=== PATIENT | male | born 1935 | race Two or more races ===

== ENCOUNTER 2020-03-06 11:57 | Inpatient (IN) | payer OTHER ==
[2020-03-06 12:02] VITALS: BMI 24.3
[2020-03-06] MEDS ORDERED: LIDOCAINE HCL 2% JELLY 10 ML CARTRIDGE UR ONE (12:59)
[2020-03-06] MEDS ORDERED: LIDOCAINE HCL 2% JELLY 10 ML CARTRIDGE ONE (13:06)
[2020-03-06 14:09] LABS: EPI CELLS 4 /uL (0-25.1); HYALINE CASTS 15 /uL (0-3.1); PH,URINE 5.5 (5.0-8.0); URINE APPEARANCE TURBID; URINE BACTERIA >9,000 /uL (0-1359); URINE BILIRUBIN NEGATIVE (NEGATIVE); URINE COLOR DK YELLOW; URINE GLUCOSE (UA) NEGATIVE (NEGATIVE); URINE KETONE NEGATIVE (NEGATIVE); URINE LEUK ESTERASE 3+ (NEGATIVE); URINE NITRITE POSITIVE (NEGATIVE); URINE PROTEIN 2+ (NEGATIVE); URINE WBC 18705 /uL (0-25.8)
[2020-03-06 14:10] LABS: URINE RBC 284.4 /uL (0-23.9)
[2020-03-06 14:18] LABS: YEAST NON SEEN (NEGATIVE)
[2020-03-06] MEDS ORDERED: ACETAMINOPHEN INJECTION 100 ML IVPB ONE (16:26)
[2020-03-06] MEDS: ACETAMINOPHEN 1000 MG/100 ML BAG IVPB ONE (16:39)
[2020-03-06] MEDS ORDERED: CEFTRIAXONE 1 GM in DEXTROSE 5%-WATER - 100 ML IVPB ONE (17:39)
[2020-03-06 17:47] LABS: BASO % 0.2 % (0-2.0); HEMATOCRIT 37.3 % (35.4-49); HEMOGLOBIN 12.3 GM/dL (11.7-16.9); LYMPH % 37.3 % (8-40); MCH 28.6 pg (25.7-33.7); MEAN CELL VOLUME 86.6 fl (80-96); MONO % 9.7 % (3.8-10.2); NEUT % 49.8 % (42.8-82.8); PLATELET COUNT 263 K/MM3 (134-434); RBC 4.31 M/mm3 (4.00-5.60); RDW 14.6 % (11.9-15.9); WHITE BLOOD COUNT 10.3 K/mm3 (4.0-10.0)
[2020-03-06 18:05] LABS: CALCIUM 9.2 mg/dL (8.5-10.1)
[2020-03-06 18:06] LABS: ALBUMIN 3.7 g/dl (3.4-5.0); BLOOD UREA NITROGEN 22.3 mg/dL (7-18)
[2020-03-06] MEDS ORDERED: CEFTRIAXONE 1 GM/50 ML BAG ONE (18:08)
[2020-03-06 18:09] LABS: CREATININE 1.2 mg/dL (0.55-1.3)
[2020-03-06 18:10] LABS: BILIRUBIN,TOTAL 0.6 mg/dL (0.2-1)
[2020-03-06 18:11] LABS: TOT PROT 7.4 g/dl (6.4-8.2)
[2020-03-06] MEDS ORDERED: ACETAMINOPHEN 325 MG TABLET (FP) PO PRN (18:50)
[2020-03-06] MEDS ORDERED: PNEUMOC 13-VAL CONJ-DIP CRM/PF 0.5 ML DISP.SYRIN IM ONE (22:00)
[2020-03-07] MEDS: CEFTRIAXONE 1 GM in DEXTROSE 5%-WATER - 50 ML IVPB SCH (10:44)
[2020-03-07] MEDS ORDERED: ONDANSETRON 4 MG/2 ML VIAL IVPUSH PRN (15:41)
[2020-03-07] MEDS ORDERED: LACTATED RINGERS SOLUTION 1,000 ML IV SCH (15:45)
[2020-03-07] MEDS ORDERED: ACETAMINOPHEN 1000 MG/100 ML BAG IVPB ONE (17:19)
[2020-03-07] MEDS: ACETAMINOPHEN 1000 MG/100 ML BAG IVPB ONE (17:25)
[2020-03-07] MEDS ORDERED: GENTAMICIN 80MG PREMIX BAG IVPB ONE (17:35)
[2020-03-07 18:57] LABS: EPI CELLS 22 /uL (0-25.1); HYALINE CASTS 2 /uL (0-3.1); URINE APPEARANCE CLOUDY; URINE BACTERIA 60 /uL (0-1359); URINE BILIRUBIN NEGATIVE (NEGATIVE); URINE COLOR ORANGE; URINE GLUCOSE (UA) NEGATIVE (NEGATIVE); URINE KETONE NEGATIVE (NEGATIVE); URINE LEUK ESTERASE 1+ (NEGATIVE); URINE NITRITE NEGATIVE (NEGATIVE); URINE PROTEIN 1+ (NEGATIVE); URINE RBC 2995 /uL (0-23.9); URINE UROBILINOGEN 0.2 mg/dL (0.2-1.0); URINE WBC 93 /uL (0-25.8)
[2020-03-08] MEDS: CEFTRIAXONE 1 GM in DEXTROSE 5%-WATER - 50 ML IVPB SCH (09:30)
[2020-03-08] MEDS ORDERED: LACTATED RINGERS SOLUTION 1,000 ML IV SCH (10:19)
[2020-03-08 12:29] LABS: BASO % 0.1 % (0-2.0); EOS % 0.8 % (0-4.5); HEMATOCRIT 33.6 % (35.4-49); HEMOGLOBIN 10.8 GM/dL (11.7-16.9); MCH 27.9 pg (25.7-33.7); MCHC 32.1 g/dl (32.0-35.9); MEAN CELL VOLUME 86.7 fl (80-96); MEAN PLT VOLUME 8.4 fl (7.5-11.1); MONO % 3.7 % (3.8-10.2); NEUT % 87.4 % (42.8-82.8); PLATELET COUNT 221 K/MM3 (134-434); RBC 3.88 M/mm3 (4.00-5.60); RDW 14.8 % (11.9-15.9); WHITE BLOOD COUNT 20.6 K/mm3 (4.0-10.0)
[2020-03-08 12:46] LABS: BLOOD UREA NITROGEN 19.5 mg/dL (7-18); CALCIUM 8.4 mg/dL (8.5-10.1)
[2020-03-08 12:47] LABS: ALBUMIN 2.5 g/dl (3.4-5.0)
[2020-03-08 12:50] LABS: CREATININE 0.8 mg/dL (0.55-1.3)
[2020-03-08 12:51] LABS: BILIRUBIN,TOTAL 0.9 mg/dL (0.2-1); TOT PROT 5.8 g/dl (6.4-8.2)
[2020-03-08 12:54] LABS: N-TERMINAL BNP 926.4 pg/ml (5-450)
[2020-03-08 14:32] LABS: ANISOCYTOSIS 2+; MACROCYTOSIS 0; PLATELET ESTIMATE NORMAL; TOXIC GRANULATION 1+
[2020-03-09] MEDS ORDERED: DEXTROSE 5%-WATER - 50 ML IVPB ONE (09:29)
[2020-03-09] MEDS ORDERED: cefTRIAXone SODIUM 1 GM VIAL ONE (09:29)
[2020-03-09] MEDS: CEFTRIAXONE 1 GM in DEXTROSE 5%-WATER - 50 ML IVPB SCH (09:38)
[2020-03-09 15:40] LABS: ALLENS TEST POSITIVE; ARTERIAL BLD GAS O2 SATURATION 93.9 mmHg (95-98); ARTERIAL BLOOD GAS BASE EXCESS 2.9 mmol/L (-2-2); ARTERIAL BLOOD GAS PO2 65.7 mmHg (80-100); ARTERIAL BLOOD GAS pH 7.455 (7.350-7.450)
[2020-03-09 16:27] LABS: BASO % 0.2 % (0-2.0); EOS % 1.9 % (0-4.5); HEMATOCRIT 34.2 % (35.4-49); HEMOGLOBIN 11.3 GM/dL (11.7-16.9); LYMPH % 11.3 % (8-40); MCH 28.2 pg (25.7-33.7); MCHC 33.2 g/dl (32.0-35.9); MEAN PLT VOLUME 7.9 fl (7.5-11.1); MONO % 6.6 % (3.8-10.2); PLATELET COUNT 233 K/MM3 (134-434); RBC 4.02 M/mm3 (4.00-5.60); RDW 14.2 % (11.9-15.9); WHITE BLOOD COUNT 16.4 K/mm3 (4.0-10.0)
[2020-03-09 16:53] LABS: ALBUMIN 2.4 g/dl (3.4-5.0); BLOOD UREA NITROGEN 15.4 mg/dL (7-18); CALCIUM 8.5 mg/dL (8.5-10.1)
[2020-03-09 16:57] LABS: CREATININE 0.8 mg/dL (0.55-1.3)
[2020-03-09 16:58] LABS: BILIRUBIN,TOTAL 0.8 mg/dL (0.2-1); TOT PROT 5.9 g/dl (6.4-8.2)
[2020-03-09] MEDS ORDERED: SODIUM CHLORIDE 500 ML IV STA (22:20)
[2020-03-09] MEDS: SODIUM CHLORIDE 0.9% 500 ML INFUS.BAG IV ONE ×2 (23:11→23:17)
[2020-03-09] MEDS: HEPARIN NA (PORCINE) 5,000 UNITS/ML 1ML VIAL SQ SCH (23:12)
[2020-03-10] MEDS: HEPARIN NA (PORCINE) 5,000 UNITS/ML 1ML VIAL SQ SCH ×2 (06:29→14:15)
[2020-03-10] MEDS ORDERED: DEXTROSE 5%-WATER - 50 ML IVPB ONE (10:11)
[2020-03-10] MEDS ORDERED: cefTRIAXone SODIUM 1 GM VIAL ONE (10:11)
[2020-03-10] MEDS: CEFTRIAXONE 1 GM in DEXTROSE 5%-WATER - 50 ML IVPB SCH (10:14)
[2020-03-10 14:02] VITALS: BP 127/73; PULSE 81; TEMP 99.3
== END 2020-03-10 14:49 | disposition home health service (06) | DRG 713 ==
LOC: SUPCPDRO 11:57 → JER 11:57 → JERBED 16:15 → J6WEST-2 18:56 → J8W 03-08 18:40
PROVIDERS: ADMIT Internal Medicine
PROC: 0V508ZZ Destruction of Prostate, Via Natural or Artificial Opening Endoscopic (ICD-10-PCS; principal; 2020-03-07)
PROC: 0T5C8ZZ Destruction of Bladder Neck, Via Natural or Artificial Opening Endoscopic (ICD-10-PCS; 2020-03-07)
DX: N40.1 Benign prostatic hyperplasia with lower urinary tract symptoms (principal); N39.0 Urinary tract infection, site not specified; J98.11 Atelectasis; R33.8 Other retention of urine; I10 Essential (primary) hypertension; E78.5 Hyperlipidemia, unspecified; R09.02 Hypoxemia; K59.09 Other constipation; D72.829 Elevated white blood cell count, unspecified
CPT/HCPCS: 36415; 36600; 71045-TC-FY; 71275-TC; 80053; 81003; 82803; 82962; 83880; 85025; 85379; 87040; 87086; 87186; 88108; 88305-TC; 90670; 93005; 93010; 93306-TC; 93970-TC; 94010; 94760; 97116-GP; 97161-GP; 99285-25; C9803; J0131; J1644; Q9967; U0003

== ENCOUNTER 2021-01-19 00:20 | Inpatient (IN) | payer OTHER ==
[2021-01-19 02:18] LABS: BASO % 0.3 % (0-2.0); HEMOGLOBIN 13.1 GM/dL (11.7-16.9); MCH 28.9 pg (25.7-33.7); MCHC 33.5 g/dl (32.0-35.9); MEAN CELL VOLUME 86.2 fl (80-96); MEAN PLT VOLUME 8.1 fl (7.5-11.1); MONO % 8.6 % (3.8-10.2); NEUT % 68.1 % (42.8-82.8); PLATELET COUNT 195 10^3/uL (134-434); RBC 4.52 M/mm3 (4.00-5.60); RDW 14.9 % (11.9-15.9); WHITE BLOOD COUNT 12.9 K/mm3 (4.0-10.0)
[2021-01-19 02:37] LABS: ALBUMIN 3.2 g/dl (3.4-5.0); BLOOD UREA NITROGEN 19.2 mg/dL (7-18); CALCIUM 8.6 mg/dL (8.5-10.1)
[2021-01-19 02:42] LABS: CREATININE 1.3 mg/dL (0.55-1.3)
[2021-01-19 02:43] LABS: BILIRUBIN,TOTAL 0.6 mg/dL (0.2-1); TOT PROT 6.8 g/dl (6.4-8.2)
[2021-01-19] MEDS ORDERED: SODIUM CHLORIDE 0.9% 500 ML INFUS.BAG IV ONE (03:25)
[2021-01-19 03:52] LABS: BASO % 0.2 % (0-2.0); EOS % 1.2 % (0-4.5); HEMOGLOBIN 12.6 GM/dL (11.7-16.9); LYMPH % 21.9 % (8-40); MCH 28.3 pg (25.7-33.7); MCHC 32.3 g/dl (32.0-35.9); MEAN CELL VOLUME 87.5 fl (80-96); MEAN PLT VOLUME 7.7 fl (7.5-11.1); NEUT % 70.7 % (42.8-82.8); PLATELET COUNT 220 10^3/uL (134-434); RBC 4.46 M/mm3 (4.00-5.60); RDW 15.1 % (11.9-15.9); WHITE BLOOD COUNT 20.1 K/mm3 (4.0-10.0)
[2021-01-19] MEDS ORDERED: SUCRALFATE 1 GM TABLET (FP) PO ONE (04:02)
[2021-01-19] MEDS ORDERED: SUCRALFATE 1 GM TABLET (FP) ONE (04:24)
[2021-01-19 06:13] LABS: BASO % 0.4 % (0-2.0); EOS % 0.3 % (0-4.5); HEMATOCRIT 38.1 % (35.4-49); HEMOGLOBIN 12.7 GM/dL (11.7-16.9); LYMPH % 9.6 % (8-40); MCH 28.9 pg (25.7-33.7); MCHC 33.3 g/dl (32.0-35.9); MEAN CELL VOLUME 86.6 fl (80-96); MEAN PLT VOLUME 8.4 fl (7.5-11.1); MONO % 4.9 % (3.8-10.2); NEUT % 84.8 % (42.8-82.8); PLATELET COUNT 182 10^3/uL (134-434); RDW 14.6 % (11.9-15.9)
[2021-01-19 06:20] LABS: INR 1.03 (0.83-1.09)
[2021-01-19 06:23] LABS: ACTIVATED PTT 27.4 SECONDS (25.2-36.5)
[2021-01-19 06:34] LABS: ANISOCYTOSIS 3+; MACROCYTOSIS 0; OVALOCYTE 1+; PLATELET ESTIMATE NORMAL
[2021-01-19 06:45] LABS: ALBUMIN 3.3 g/dl (3.4-5.0); BLOOD UREA NITROGEN 21.6 mg/dL (7-18); CALCIUM 8.4 mg/dL (8.5-10.1); CO2 25 mmol/L (21-32); GLUCOSE,RANDOM 108 mg/dL (74-106)
[2021-01-19 06:46] LABS: CREATININE 1.3 mg/dL (0.55-1.3); SGOT/AST 18 U/L (15-37); SGPT/ALT 15 U/L (13-61)
[2021-01-19 06:47] LABS: PHOSPHOROUS 3.8 mg/dL (2.5-4.9)
[2021-01-19 06:49] LABS: BILIRUBIN,TOTAL 0.6 mg/dL (0.2-1); TOT PROT 6.8 g/dl (6.4-8.2)
[2021-01-19 06:50] LABS: ALK PHOS 89 U/L (45-117)
[2021-01-19 07:40] LABS: ANION GAP 7 MMOL/L (8-16); CHLORIDE 108 mmol/L (98-107); SODIUM 140 mmol/L (136-145)
[2021-01-19] MEDS ORDERED: PANTOPRAZOLE SODIUM 40 MG/100 ML BAG IVPB ONE (07:57)
[2021-01-19] MEDS ORDERED: TAMSULOSIN HCL 0.4 MG CAP ONE (07:57)
[2021-01-19] MEDS: TAMSULOSIN HCL 0.4 MG CAP PO SCH (08:12)
[2021-01-19 08:32] LABS: RETICULOCYTES 0.86 % (0.5-1.5)
[2021-01-19 08:52] LABS: EPI CELLS 28 /uL (0-25.1); HYALINE CASTS 5 /uL (0-3.1); URINE APPEARANCE CLEAR; URINE BACTERIA 13 /uL (0-1359); URINE BILIRUBIN NEGATIVE (NEGATIVE); URINE COLOR YELLOW; URINE GLUCOSE (UA) NEGATIVE (NEGATIVE); URINE KETONE TRACE (NEGATIVE); URINE LEUK ESTERASE TRACE (NEGATIVE); URINE NITRITE NEGATIVE (NEGATIVE); URINE PROTEIN 1+ (NEGATIVE); URINE RBC 27 /uL (0-23.9); URINE UROBILINOGEN 0.2 mg/dL (0.2-1.0); URINE WBC 50 /uL (0-25.8)
[2021-01-19] MEDS ORDERED: PANTOPRAZOLE SODIUM 40 MG VIAL IVPUSH SCH (10:00)
[2021-01-19 11:09] VITALS: BMI 27.9
[2021-01-19] MEDS ORDERED: cefTRIAXone SODIUM 1 GM VIAL ONE (11:29)
[2021-01-19] MEDS ORDERED: DEXTROSE 5%-WATER - 50 ML IVPB ONE (11:29)
[2021-01-19] MEDS ORDERED: FLU VACC QS2021-22(6MOS UP)/PF 60 MCG/0.5 ML SYRINGE IM ONE (12:15)
[2021-01-19] MEDS: CEFTRIAXONE 1 GM in DEXTROSE 5%-WATER - 50 ML IVPB SCH (12:45)
[2021-01-19 13:31] LABS: HEMOGLOBIN 11.5 GM/dL (11.7-16.9); MCH 29.4 pg (25.7-33.7); MCHC 33.9 g/dl (32.0-35.9); MEAN CELL VOLUME 86.8 fl (80-96); MEAN PLT VOLUME 7.9 fl (7.5-11.1); PLATELET COUNT 177 10^3/uL (134-434); RBC 3.92 M/mm3 (4.00-5.60); RDW 14.7 % (11.9-15.9); WHITE BLOOD COUNT 9.9 K/mm3 (4.0-10.0)
[2021-01-19 20:09] LABS: HEMATOCRIT 33.6 % (35.4-49); HEMOGLOBIN 11.3 GM/dL (11.7-16.9); MCHC 33.5 g/dl (32.0-35.9); MEAN CELL VOLUME 86.4 fl (80-96); MEAN PLT VOLUME 8.4 fl (7.5-11.1); PLATELET COUNT 179 10^3/uL (134-434); RBC 3.89 M/mm3 (4.00-5.60); RDW 14.7 % (11.9-15.9); WHITE BLOOD COUNT 9.2 K/mm3 (4.0-10.0)
[2021-01-20 06:32] LABS: HEMATOCRIT 31.9 % (35.4-49); HEMOGLOBIN 10.9 GM/dL (11.7-16.9); MCH 29.2 pg (25.7-33.7); MEAN CELL VOLUME 85.9 fl (80-96); MEAN PLT VOLUME 8.4 fl (7.5-11.1); PLATELET COUNT 179 10^3/uL (134-434); RBC 3.72 M/mm3 (4.00-5.60); RDW 14.6 % (11.9-15.9); WHITE BLOOD COUNT 7.8 K/mm3 (4.0-10.0)
[2021-01-20 08:34] VITALS: BP 133/68; PULSE 69
[2021-01-20 08:38] LABS: BASO % 0.6 % (0-2.0); EOS % 3.2 % (0-4.5); HEMATOCRIT 32.6 % (35.4-49); HEMOGLOBIN 11.2 GM/dL (11.7-16.9); LYMPH % 33.1 % (8-40); MCH 29.3 pg (25.7-33.7); MCHC 34.3 g/dl (32.0-35.9); MEAN CELL VOLUME 85.5 fl (80-96); NEUT % 55.1 % (42.8-82.8); RBC 3.81 M/mm3 (4.00-5.60); RDW 14.8 % (11.9-15.9); WHITE BLOOD COUNT 8.5 K/mm3 (4.0-10.0)
[2021-01-20 08:39] LABS: MEAN PLT VOLUME 8.9 fl (7.5-11.1); PLATELET COUNT 149 10^3/uL (134-434)
[2021-01-20 09:04] LABS: ALBUMIN 2.9 g/dl (3.4-5.0); BLOOD UREA NITROGEN 12.6 mg/dL (7-18); CALCIUM 7.7 mg/dL (8.5-10.1)
[2021-01-20 09:08] LABS: CREATININE 0.8 mg/dL (0.55-1.3)
[2021-01-20 09:09] LABS: BILIRUBIN,TOTAL 0.8 mg/dL (0.2-1); TOT PROT 5.8 g/dl (6.4-8.2)
[2021-01-20] MEDS ORDERED: cefTRIAXone SODIUM 1 GM VIAL ONE (09:18)
[2021-01-20] MEDS ORDERED: DEXTROSE 5%-WATER - 50 ML IVPB ONE (09:19)
[2021-01-20] MEDS: CEFTRIAXONE 1 GM in DEXTROSE 5%-WATER - 50 ML IVPB SCH (09:25)
[2021-01-20] MEDS: TAMSULOSIN HCL 0.4 MG CAP PO SCH (09:25)
[2021-01-20 09:36] VITALS: TEMP 97.6
[2021-01-20 09:38] LABS: PLATELET ESTIMATE NORMAL
== END 2021-01-20 17:44 | disposition home or self-care (01) | DRG 379 ==
LOC: JER 00:20 → JERBED 04:39 → J8W 09:49
PROVIDERS: ADMIT Internal Medicine
DX: K57.33 Diverticulitis of large intestine without perforation or abscess with bleeding (principal); K62.5 Hemorrhage of anus and rectum; K64.9 Unspecified hemorrhoids; D72.829 Elevated white blood cell count, unspecified; M54.9 Dorsalgia, unspecified; N40.1 Benign prostatic hyperplasia with lower urinary tract symptoms; R33.8 Other retention of urine; E78.5 Hyperlipidemia, unspecified; I45.10 Unspecified right bundle-branch block; N28.1 Cyst of kidney, acquired; I10 Essential (primary) hypertension; N20.0 Calculus of kidney; K59.00 Constipation, unspecified; Z85.46 Personal history of malignant neoplasm of prostate
CPT/HCPCS: 36415; 71045-TC-FY; 74176-TC; 80053; 81003; 82272; 83735; 84100; 85025; 85027; 85045; 85610; 85730; 86140; 86850; 86900; 86901; 87040; 87077; 87086; 87186; 90686; 93005; 93010; 99285-25; C9803; U0003; U0005

== ENCOUNTER 2021-04-14 01:42 | Emergency (ER) | payer OTHER ==
[2021-04-14 01:55] VITALS: BP 106/63; PULSE 83; TEMP 97.6; BMI 25.8
[2021-04-14] MEDS ORDERED: ACETAMINOPHEN 325 MG TABLET (FP) PO ONE (04:29)
[2021-04-14] MEDS ORDERED: ACETAMINOPHEN 325 MG TABLET (FP) ONE (04:49)
== END 2021-04-14 06:11 | disposition home or self-care (01) ==
LOC: JER 01:42
DX: T83.098A Other mechanical complication of other urinary catheter, initial encounter (principal)
CPT/HCPCS: 99283-25

== ENCOUNTER 2021-05-21 20:10 | Emergency (ER) | payer OTHER ==
[2021-05-21 20:19] VITALS: BP 124/70; PULSE 82; TEMP 97.9; BMI 26.6
== END 2021-05-21 21:58 | disposition home or self-care (01) ==
LOC: JER 20:10
DX: T83.9XXA Unspecified complication of genitourinary prosthetic device, implant and graft, initial encounter (principal)
CPT/HCPCS: 99283-25

== ENCOUNTER 2021-05-26 22:22 | Emergency (ER) | payer OTHER ==
[2021-05-26 22:25] VITALS: BP 159/80; PULSE 85; TEMP 98; BMI 26.6
[2021-05-27 00:30] LABS: EPI CELLS 1 /uL (0-25.1); HYALINE CASTS 1 /uL (0-3.1); PH,URINE 7.5 (5.0-8.0); URINE APPEARANCE CLEAR; URINE BILIRUBIN NEGATIVE (NEGATIVE); URINE COLOR YELLOW; URINE GLUCOSE (UA) NEGATIVE (NEGATIVE); URINE KETONE NEGATIVE (NEGATIVE); URINE LEUK ESTERASE 2+ (NEGATIVE); URINE NITRITE POSITIVE (NEGATIVE); URINE PROTEIN 1+ (NEGATIVE); URINE RBC 12 /uL (0-23.9); URINE UROBILINOGEN 0.2 mg/dL (0.2-1.0); URINE WBC 138 /uL (0-25.8)
[2021-05-27] MEDS ORDERED: SULFAMETHOXAZOLE/TRIMETHOPRIM 800MG/160MG D.S. TABLET PO ONE (00:33)
[2021-05-27] MEDS ORDERED: SULFAMETHOXAZOLE/TRIMETHOPRIM 800MG/160MG D.S. TABLET ONE (00:52)
== END 2021-05-27 01:17 | disposition home or self-care (01) ==
LOC: JER 22:22
DX: R33.9 Retention of urine, unspecified (principal); N39.0 Urinary tract infection, site not specified; T83.9XXA Unspecified complication of genitourinary prosthetic device, implant and graft, initial encounter
CPT/HCPCS: 81003; 87086; 87186; 99283-25

== ENCOUNTER 2021-05-30 13:10 | Emergency (ER) | payer OTHER ==
[2021-05-30 13:23] VITALS: TEMP 97.8; BMI 25.0
[2021-05-30] MEDS ORDERED: PIPERACILLIN/TAZOB 4.5 GM 4.5 GM in DEXTROSE 5%-WATER 100 ML IVPB ONE (15:35)
[2021-05-30] MEDS ORDERED: PIPERACILLIN/TAZOB 4.5 GM 4.5 GM/100 ML BAG IVPB ONE (15:52)
[2021-05-30 16:26] LABS: BASO % 0.2 % (0-2.0); EOS % 2.6 % (0-4.5); HEMATOCRIT 37.9 % (35.4-49); HEMOGLOBIN 12.4 GM/dL (11.7-16.9); LYMPH % 35.8 % (8-40); MCH 27.2 pg (25.7-33.7); MCHC 32.7 g/dl (32.0-35.9); MEAN CELL VOLUME 83.3 fl (80-96); MEAN PLT VOLUME 7.9 fl (7.5-11.1); MONO % 9.6 % (3.8-10.2); NEUT % 51.8 % (42.8-82.8); PLATELET COUNT 241 10^3/uL (134-434); RBC 4.55 M/mm3 (4.00-5.60); RDW 15.1 % (11.9-15.9); WHITE BLOOD COUNT 9.5 K/mm3 (4.0-10.0)
[2021-05-30 16:29] LABS: EPI CELLS 0 /uL (0-25.1); HYALINE CASTS 3 /uL (0-3.1); PH,URINE 7.5 (5.0-8.0); URINE APPEARANCE CLEAR; URINE BILIRUBIN NEGATIVE (NEGATIVE); URINE COLOR YELLOW; URINE GLUCOSE (UA) NEGATIVE (NEGATIVE); URINE KETONE NEGATIVE (NEGATIVE); URINE LEUK ESTERASE 2+ (NEGATIVE); URINE NITRITE POSITIVE (NEGATIVE); URINE PROTEIN 1+ (NEGATIVE); URINE RBC 114 /uL (0-23.9); URINE UROBILINOGEN 0.2 mg/dL (0.2-1.0); URINE WBC 197 /uL (0-25.8)
[2021-05-30 16:43] LABS: CALCIUM 9.1 mg/dL (8.5-10.1)
[2021-05-30 16:44] LABS: ALBUMIN 3.7 g/dl (3.4-5.0); BLOOD UREA NITROGEN 22.6 mg/dL (7-18)
[2021-05-30 16:48] LABS: BILIRUBIN,TOTAL 0.7 mg/dL (0.2-1); TOT PROT 7.5 g/dl (6.4-8.2)
[2021-05-30 18:15] VITALS: BP 128/72; PULSE 74
== END 2021-05-30 18:15 | disposition home or self-care (01) ==
LOC: JER 13:10
DX: N39.0 Urinary tract infection, site not specified (principal); B96.4 Proteus (mirabilis) (morganii) as the cause of diseases classified elsewhere; T83.511A Infection and inflammatory reaction due to indwelling urethral catheter, initial encounter
CPT/HCPCS: 36415; 80053; 81003; 85025; 99284-25; C9803; U0003; U0005

== ENCOUNTER 2021-08-01 19:03 | Emergency (ER) | payer OTHER ==
[2021-08-01 19:31] VITALS: BP 125/73; PULSE 79; TEMP 98.2; BMI 26.6
[2021-08-01 20:53] LABS: EPI CELLS 1 /uL (0-25.1); HYALINE CASTS 1 /uL (0-3.1); PH,URINE 5.5 (5.0-8.0); URINE APPEARANCE CLOUDY; URINE BACTERIA 925 /uL (0-1359); URINE BILIRUBIN NEGATIVE (NEGATIVE); URINE COLOR YELLOW; URINE GLUCOSE (UA) NEGATIVE (NEGATIVE); URINE KETONE NEGATIVE (NEGATIVE); URINE LEUK ESTERASE 2+ (NEGATIVE); URINE NITRITE NEGATIVE (NEGATIVE); URINE PROTEIN 2+ (NEGATIVE); URINE RBC 13000 /uL (0-23.9); URINE WBC 2783 /uL (0-25.8)
== END 2021-08-01 23:00 | disposition home or self-care (01) ==
LOC: JER 19:03
DX: N30.01 Acute cystitis with hematuria (principal)
CPT/HCPCS: 36415; 81003; 87070; 87075; 87086; 87186; 87205; 87491; 87591; 99283-25

== ENCOUNTER 2021-08-03 18:43 | Emergency (ER) | payer OTHER ==
[2021-08-03 18:50] VITALS: BP 137/69; PULSE 96; TEMP 97.8; BMI 26.6
== END 2021-08-03 21:15 | disposition home or self-care (01) ==
LOC: JER 18:43
DX: N30.00 Acute cystitis without hematuria (principal); T83.9XXA Unspecified complication of genitourinary prosthetic device, implant and graft, initial encounter
CPT/HCPCS: 99283-25

== ENCOUNTER 2021-08-09 09:10 | Inpatient (IN) | payer OTHER ==
[2021-08-09 10:11] VITALS: BMI 25.8
[2021-08-09 12:43] LABS: BASO % 0.1 % (0-2.0); EOS % 0.1 % (0-4.5); HEMATOCRIT 25.1 % (35.4-49); HEMOGLOBIN 8.3 GM/dL (11.7-16.9); LYMPH % 12.3 % (8-40); MCH 27.9 pg (25.7-33.7); MEAN CELL VOLUME 84.7 fl (80-96); MONO % 4.4 % (3.8-10.2); NEUT % 83.1 % (42.8-82.8); PLATELET COUNT 201 10^3/uL (134-434); RBC 2.97 M/mm3 (4.00-5.60); RDW 13.8 % (11.9-15.9); WHITE BLOOD COUNT 12.2 K/mm3 (4.0-10.0)
[2021-08-09 12:51] LABS: INR 1.15 (0.83-1.09); PROTHROMBIN TIME (PATIENT) 13.3 SEC (9.7-13.0)
[2021-08-09 12:54] LABS: ACTIVATED PTT 29.1 SECONDS (25.2-36.5)
[2021-08-09 12:58] LABS: EPI CELLS 1 /uL (0-25.1); HYALINE CASTS 2 /uL (0-3.1); URINE APPEARANCE CLEAR; URINE BACTERIA 1506 /uL (0-1359); URINE BILIRUBIN NEGATIVE (NEGATIVE); URINE COLOR YELLOW; URINE GLUCOSE (UA) NEGATIVE (NEGATIVE); URINE KETONE NEGATIVE (NEGATIVE); URINE LEUK ESTERASE 2+ (NEGATIVE); URINE NITRITE POSITIVE (NEGATIVE); URINE PROTEIN NEGATIVE (NEGATIVE); URINE RBC 5 /uL (0-23.9); URINE UROBILINOGEN 0.2 mg/dL (0.2-1.0); URINE WBC 203 /uL (0-25.8)
[2021-08-09 13:06] LABS: ALBUMIN 3.3 g/dl (3.4-5.0); BLOOD UREA NITROGEN 44.3 mg/dL (7-18); CALCIUM 8.9 mg/dL (8.5-10.1)
[2021-08-09 13:09] LABS: CREATININE 0.8 mg/dL (0.55-1.3)
[2021-08-09 13:11] LABS: BILIRUBIN,TOTAL 0.4 mg/dL (0.2-1); TOT PROT 6.6 g/dl (6.4-8.2)
[2021-08-09] MEDS ORDERED: PIPERACILLIN/TAZOB 3.375 GM 3.375 GM in DEXTROSE 5%-WATER - 50 ML IVPB ONE (13:59)
[2021-08-09] MEDS ORDERED: PIPERACILLIN/TAZOB 3.375 GM 3.375 GM/50 ML BAG IVPB ONE (14:05)
[2021-08-09] MEDS ORDERED: ACETAMINOPHEN 325 MG TABLET (FP) PO PRN (15:36)
[2021-08-09] MEDS ORDERED: POLYETHYLENE GLYCOL (HEALTHYLAX) 3350 17 GM PACKET PO PRN (15:36)
[2021-08-09] MEDS ORDERED: PIPERACILLIN/TAZOBACTAM 3.375 GM VIAL IVPB ONE (21:00)
[2021-08-09] MEDS ORDERED: DEXTROSE 5%-WATER - 50 ML IVPB ONE (21:01)
[2021-08-09] MEDS: ATORVASTATIN CA 20 MG TABLET (FP) PO SCH (21:01)
[2021-08-09] MEDS: PIPERACILLIN/TAZOB 3.375 GM 3.375 GM in DEXTROSE 5%-WATER - 50 ML IVPB SCH (22:03)
[2021-08-10] MEDS ORDERED: PIPERACILLIN/TAZOBACTAM 3.375 GM VIAL IVPB ONE ×3 (05:40→21:49)
[2021-08-10] MEDS ORDERED: DEXTROSE 5%-WATER - 50 ML IVPB ONE ×3 (05:40→21:49)
[2021-08-10] MEDS: PIPERACILLIN/TAZOB 3.375 GM 3.375 GM in DEXTROSE 5%-WATER - 50 ML IVPB SCH ×3 (06:08→22:00)
[2021-08-10 07:23] LABS: BASO % 0.2 % (0-2.0); EOS % 0.1 % (0-4.5); HEMOGLOBIN 7.3 GM/dL (11.7-16.9); LYMPH % 18.7 % (8-40); MCH 27.8 pg (25.7-33.7); MCHC 33.1 g/dl (32.0-35.9); MEAN CELL VOLUME 84.1 fl (80-96); MEAN PLT VOLUME 7.8 fl (7.5-11.1); MONO % 5.2 % (3.8-10.2); NEUT % 75.8 % (42.8-82.8); PLATELET COUNT 218 10^3/uL (134-434); RBC 2.62 M/mm3 (4.00-5.60); RDW 14.4 % (11.9-15.9); WHITE BLOOD COUNT 11.9 K/mm3 (4.0-10.0)
[2021-08-10 07:50] LABS: ALBUMIN 3.2 g/dl (3.4-5.0); CALCIUM 8.6 mg/dL (8.5-10.1); MAGNESIUM 2.1 mg/dL (1.8-2.4)
[2021-08-10 07:51] LABS: BLOOD UREA NITROGEN 32.9 mg/dL (7-18)
[2021-08-10 07:53] LABS: CREATININE 0.9 mg/dL (0.55-1.3)
[2021-08-10 07:54] LABS: PHOSPHOROUS 3.6 mg/dL (2.5-4.9)
[2021-08-10 07:55] LABS: BILIRUBIN,TOTAL 0.6 mg/dL (0.2-1); TOT PROT 6.2 g/dl (6.4-8.2)
[2021-08-10] MEDS: DONEPEZIL HCL 5 MG TABLET (FP) PO SCH (09:36)
[2021-08-10] MEDS: BETHANECHOL CHLORIDE 25 MG TABLET PO SCH ×2 (09:36→17:37)
[2021-08-10] MEDS: TAMSULOSIN HCL 0.4 MG CAP PO SCH (09:37)
[2021-08-10] MEDS ORDERED: ENOXAPARIN NA (PORCINE) 40 MG/0.4 ML DISP.SYRIN SQ SCH (10:00)
[2021-08-10] MEDS ORDERED: CLOPIDOGREL BISULFATE 75 MG TABLET (FP) PO SCH (10:00)
[2021-08-10] MEDS: LACTATED RINGERS SOLUTION 1,000 ML/1,000 ML INFUS.BAG IV SCH (11:17)
[2021-08-10] MEDS ORDERED: PANTOPRAZOLE SODIUM 40 MG VIAL IVPUSH SCH (11:30)
[2021-08-10] MEDS: ATORVASTATIN CA 20 MG TABLET (FP) PO SCH (22:00)
[2021-08-11] MEDS ORDERED: PIPERACILLIN/TAZOBACTAM 3.375 GM VIAL IVPB ONE ×2 (05:55→13:59)
[2021-08-11] MEDS ORDERED: DEXTROSE 5%-WATER - 50 ML IVPB ONE ×2 (05:55→14:00)
[2021-08-11] MEDS: PIPERACILLIN/TAZOB 3.375 GM 3.375 GM in DEXTROSE 5%-WATER - 50 ML IVPB SCH ×3 (05:58→14:15)
[2021-08-11 09:17] LABS: BASO % 0.2 % (0-2.0); EOS % 0.5 % (0-4.5); HEMATOCRIT 22.9 % (35.4-49); INR 1.08 (0.83-1.09); LYMPH % 24.2 % (8-40); MCHC 35.1 g/dl (32.0-35.9); MEAN CELL VOLUME 82.6 fl (80-96); MEAN PLT VOLUME 7.7 fl (7.5-11.1); MONO % 9.2 % (3.8-10.2); NEUT % 65.9 % (42.8-82.8); PLATELET COUNT 178 10^3/uL (134-434); PROTHROMBIN TIME (PATIENT) 12.4 SEC (9.7-13.0); RBC 2.77 M/mm3 (4.00-5.60); RDW 14.1 % (11.9-15.9); WHITE BLOOD COUNT 10.9 K/mm3 (4.0-10.0)
[2021-08-11] MEDS: TAMSULOSIN HCL 0.4 MG CAP PO SCH (09:35)
[2021-08-11] MEDS: BETHANECHOL CHLORIDE 25 MG TABLET PO SCH ×2 (09:36→17:53)
[2021-08-11] MEDS: DONEPEZIL HCL 5 MG TABLET (FP) PO SCH (09:36)
[2021-08-11] MEDS: PANTOPRAZOLE SODIUM 40 MG VIAL IVPUSH SCH (09:36)
[2021-08-11 09:50] LABS: BLOOD UREA NITROGEN 16.9 mg/dL (7-18); CALCIUM 8.6 mg/dL (8.5-10.1)
[2021-08-11 09:53] LABS: CREATININE 0.8 mg/dL (0.55-1.3)
[2021-08-11] MEDS: LACTATED RINGERS SOLUTION 1,000 ML/1,000 ML INFUS.BAG IV SCH (14:15)
[2021-08-11] MEDS: ATORVASTATIN CA 20 MG TABLET (FP) PO SCH (22:03)
[2021-08-12 07:32] LABS: HEMATOCRIT 22.6 % (35.4-49); HEMOGLOBIN 7.9 GM/dL (11.7-16.9); MCH 29.2 pg (25.7-33.7); MEAN CELL VOLUME 83.6 fl (80-96); MEAN PLT VOLUME 7.4 fl (7.5-11.1); PLATELET COUNT 190 10^3/uL (134-434); RDW 14.2 % (11.9-15.9); WHITE BLOOD COUNT 9.4 K/mm3 (4.0-10.0)
[2021-08-12] MEDS ORDERED: cefTRIAXone SODIUM 1 GM VIAL ONE (09:09)
[2021-08-12] MEDS ORDERED: DEXTROSE 5%-WATER - 50 ML IVPB ONE (09:10)
[2021-08-12] MEDS: DONEPEZIL HCL 5 MG TABLET (FP) PO SCH (09:14)
[2021-08-12] MEDS: PANTOPRAZOLE SODIUM 40 MG VIAL IVPUSH SCH (09:14)
[2021-08-12] MEDS: TAMSULOSIN HCL 0.4 MG CAP PO SCH (09:14)
[2021-08-12] MEDS: BETHANECHOL CHLORIDE 25 MG TABLET PO SCH ×2 (09:15→17:36)
[2021-08-12] MEDS ORDERED: CEFTRIAXONE 1 GM in DEXTROSE 5%-WATER - 50 ML IVPB SCH (10:00)
[2021-08-12] MEDS: LACTATED RINGERS SOLUTION 1,000 ML/1,000 ML INFUS.BAG IV SCH ×2 (10:51→17:37)
[2021-08-12] MEDS: ATORVASTATIN CA 20 MG TABLET (FP) PO SCH (22:36)
[2021-08-13 07:48] LABS: BASO % 0.3 % (0-2.0); EOS % 3.9 % (0-4.5); HEMATOCRIT 22.7 % (35.4-49); HEMOGLOBIN 7.8 GM/dL (11.7-16.9); LYMPH % 28.1 % (8-40); MCH 29.2 pg (25.7-33.7); MCHC 34.4 g/dl (32.0-35.9); MEAN CELL VOLUME 84.8 fl (80-96); MEAN PLT VOLUME 7.3 fl (7.5-11.1); MONO % 10.2 % (3.8-10.2); NEUT % 57.5 % (42.8-82.8); PLATELET COUNT 198 10^3/uL (134-434); RBC 2.68 M/mm3 (4.00-5.60); RDW 14.3 % (11.9-15.9); WHITE BLOOD COUNT 7.4 K/mm3 (4.0-10.0)
[2021-08-13 08:30] LABS: CALCIUM 8.5 mg/dL (8.5-10.1)
[2021-08-13 08:31] LABS: ALBUMIN 2.9 g/dl (3.4-5.0); BLOOD UREA NITROGEN 6.6 mg/dL (7-18)
[2021-08-13 08:32] LABS: BILIRUBIN,TOTAL 0.8 mg/dL (0.2-1); TOT PROT 5.7 g/dl (6.4-8.2)
[2021-08-13 08:33] LABS: CREATININE 0.7 mg/dL (0.55-1.3)
[2021-08-13] MEDS: BETHANECHOL CHLORIDE 25 MG TABLET PO SCH ×2 (09:13→18:19)
[2021-08-13] MEDS: PANTOPRAZOLE SODIUM 40 MG VIAL IVPUSH SCH (09:13)
[2021-08-13] MEDS: TAMSULOSIN HCL 0.4 MG CAP PO SCH (09:13)
[2021-08-13] MEDS: DONEPEZIL HCL 5 MG TABLET (FP) PO SCH (09:13)
[2021-08-13] MEDS ORDERED: CEFUROXIME AXETIL 500 MG TABLET PO SCH (10:00)
[2021-08-13] MEDS: LACTATED RINGERS SOLUTION 1,000 ML/1,000 ML INFUS.BAG IV SCH (11:21)
[2021-08-13] MEDS ORDERED: ACETAMINOPHEN 325 MG TABLET (FP) PO PRN (15:46)
[2021-08-13] MEDS: ATORVASTATIN CA 20 MG TABLET (FP) PO SCH (23:00)
[2021-08-13] MEDS: CEFUROXIME AXETIL 500 MG TABLET PO SCH (23:00)
[2021-08-14] MEDS: DONEPEZIL HCL 5 MG TABLET (FP) PO SCH (09:05)
[2021-08-14] MEDS: PANTOPRAZOLE SODIUM 40 MG VIAL IVPUSH SCH (09:05)
[2021-08-14] MEDS: BETHANECHOL CHLORIDE 25 MG TABLET PO SCH ×2 (09:06→17:45)
[2021-08-14] MEDS: TAMSULOSIN HCL 0.4 MG CAP PO SCH (09:06)
[2021-08-14] MEDS: CEFUROXIME AXETIL 500 MG TABLET PO SCH ×2 (09:06→21:41)
[2021-08-14] MEDS: ATORVASTATIN CA 20 MG TABLET (FP) PO SCH (21:41)
[2021-08-15] MEDS: TAMSULOSIN HCL 0.4 MG CAP PO SCH (09:14)
[2021-08-15] MEDS: BETHANECHOL CHLORIDE 25 MG TABLET PO SCH ×2 (09:15→17:42)
[2021-08-15] MEDS: CEFUROXIME AXETIL 500 MG TABLET PO SCH ×2 (09:15→21:17)
[2021-08-15] MEDS: DONEPEZIL HCL 5 MG TABLET (FP) PO SCH (09:15)
[2021-08-15] MEDS: PANTOPRAZOLE SODIUM 40 MG VIAL IVPUSH SCH (09:16)
[2021-08-15 10:50] LABS: BASO % 0.2 % (0-2.0); EOS % 2.9 % (0-4.5); HEMOGLOBIN 10.7 GM/dL (11.7-16.9); MCH 29.2 pg (25.7-33.7); MCHC 34.5 g/dl (32.0-35.9); MEAN CELL VOLUME 84.6 fl (80-96); MEAN PLT VOLUME 7.2 fl (7.5-11.1); MONO % 8.3 % (3.8-10.2); NEUT % 66.6 % (42.8-82.8); PLATELET COUNT 244 10^3/uL (134-434); RBC 3.66 M/mm3 (4.00-5.60); RDW 14.4 % (11.9-15.9); WHITE BLOOD COUNT 9.8 K/mm3 (4.0-10.0)
[2021-08-15 11:10] LABS: CALCIUM 8.7 mg/dL (8.5-10.1)
[2021-08-15 11:11] LABS: BLOOD UREA NITROGEN 8.6 mg/dL (7-18)
[2021-08-15 11:14] LABS: CREATININE 0.8 mg/dL (0.55-1.3)
[2021-08-15 11:27] LABS: INR 1.09 (0.83-1.09); PROTHROMBIN TIME (PATIENT) 12.5 SEC (9.7-13.0)
[2021-08-15 12:15] LABS: N-TERMINAL BNP 115.9 pg/ml (5-450)
[2021-08-15] MEDS ORDERED: POTASSIUM CHLORIDE TABS 20 MEQ TABLET.ER (FP) PO ONE (15:50)
[2021-08-15] MEDS: ASPIRIN COATED 81 MG TABLET.EC PO SCH (17:47)
[2021-08-15] MEDS: CLOPIDOGREL BISULFATE 75 MG TABLET (FP) PO SCH (17:47)
[2021-08-15] MEDS: PANTOPRAZOLE 40 MG TABLET PO SCH (21:16)
[2021-08-15] MEDS: ATORVASTATIN CA 20 MG TABLET (FP) PO SCH (21:17)
[2021-08-16] MEDS: TAMSULOSIN HCL 0.4 MG CAP PO SCH (08:03)
[2021-08-16] MEDS: BETHANECHOL CHLORIDE 25 MG TABLET PO SCH (08:03)
[2021-08-16] MEDS: ASPIRIN COATED 81 MG TABLET.EC PO SCH ×2 (09:24→09:35)
[2021-08-16] MEDS: CLOPIDOGREL BISULFATE 75 MG TABLET (FP) PO SCH (09:24)
[2021-08-16] MEDS: DONEPEZIL HCL 5 MG TABLET (FP) PO SCH (09:24)
[2021-08-16] MEDS: PANTOPRAZOLE 40 MG TABLET PO SCH (09:24)
[2021-08-16] MEDS: CEFUROXIME AXETIL 500 MG TABLET PO SCH (09:25)
[2021-08-16 14:27] VITALS: BP 107/61; PULSE 65; TEMP 97.5
[2021-08-16 15:52] LABS: BASO % 0.3 % (0-2.0); HEMATOCRIT 29.9 % (35.4-49); HEMOGLOBIN 10.3 GM/dL (11.7-16.9); MCH 29.2 pg (25.7-33.7); MCHC 34.4 g/dl (32.0-35.9); MEAN CELL VOLUME 84.9 fl (80-96); MEAN PLT VOLUME 7.4 fl (7.5-11.1); MONO % 10.7 % (3.8-10.2); PLATELET COUNT 242 10^3/uL (134-434); RBC 3.52 M/mm3 (4.00-5.60); RDW 14.6 % (11.9-15.9); WHITE BLOOD COUNT 7.8 K/mm3 (4.0-10.0)
[2021-08-16 16:08] LABS: ALBUMIN 3.4 g/dl (3.4-5.0); CALCIUM 8.6 mg/dL (8.5-10.1)
[2021-08-16 16:09] LABS: BLOOD UREA NITROGEN 11.8 mg/dL (7-18)
[2021-08-16 16:12] LABS: CREATININE 0.9 mg/dL (0.55-1.3); TOT PROT 6.6 g/dl (6.4-8.2)
[2021-08-16 16:13] LABS: BILIRUBIN,TOTAL 0.8 mg/dL (0.2-1)
[2021-08-17 23:06] LABS: CARCINOEMBRYONIC ANTIGEN 0.9 ng/mL (0.0-4.7)
== END 2021-08-16 17:25 | disposition home or self-care (01) | DRG 813 ==
LOC: JER 09:10 → UNDOADMOB 14:33 → JERBED 14:33 → INTOOBSV 15:36 → OBSVTOIN 15:36 → JERBED 15:39 → J4W 15:39 → JERBED 17:01 → OBSVTOIN 08-10 08:23 → J7W 08-13 15:22
PROVIDERS: ADMIT Internal Medicine
PROC: 30233N1 Transfusion of Nonautologous Red Blood Cells into Peripheral Vein, Percutaneous Approach (ICD-10-PCS; 2021-08-10)
PROC: 0DB98ZX Excision of Duodenum, Via Natural or Artificial Opening Endoscopic, Diagnostic (ICD-10-PCS; 2021-08-15)
PROC: 0DB58ZX Excision of Esophagus, Via Natural or Artificial Opening Endoscopic, Diagnostic (ICD-10-PCS; 2021-08-15)
PROC: 0DB68ZX Excision of Stomach, Via Natural or Artificial Opening Endoscopic, Diagnostic (ICD-10-PCS; principal; 2021-08-15 10:30)
DX: D68.32 Hemorrhagic disorder due to extrinsic circulating anticoagulants (principal); K25.4 Chronic or unspecified gastric ulcer with hemorrhage; N39.0 Urinary tract infection, site not specified; T83.511A Infection and inflammatory reaction due to indwelling urethral catheter, initial encounter; D62 Acute posthemorrhagic anemia; Y83.9 Surgical procedure, unspecified as the cause of abnormal reaction of the patient, or of later complication, without mention of misadventure at the time of the procedure; N40.0 Benign prostatic hyperplasia without lower urinary tract symptoms; B96.20 Unspecified Escherichia coli [E. coli] as the cause of diseases classified elsewhere; D72.829 Elevated white blood cell count, unspecified; R31.9 Hematuria, unspecified; K44.9 Diaphragmatic hernia without obstruction or gangrene; K21.00 Gastro-esophageal reflux disease with esophagitis, without bleeding; I25.10 Atherosclerotic heart disease of native coronary artery without angina pectoris; Z98.61 Coronary angioplasty status
CPT/HCPCS: 36415; 36430; 71046-TC-FY; 74177-TC; 80048; 80053; 80061; 81003; 82272; 82378; 82728; 82784; 82962; 83036; 83540; 83550; 83735; 83880; 84100; 84155; 84165; 84260; 84443; 84484; 85025; 85027; 85045; 85610; 85730; 86140; 86334; 86850; 86900; 86901; 86922; 87040; 87086; 87186; 88305-TC; 93005; 93010; 93306-TC; 97116-GP; 97162-GP; 99285-25; C9803-CS; G0378; P9058; Q9967; U0003; U0005

== ENCOUNTER 2021-10-16 00:08 | Emergency (ER) | payer OTHER ==
[2021-10-16 00:29] VITALS: BP 128/72; PULSE 77; RESP 18; TEMP 98; BMI 28.1
== END 2021-10-16 01:32 | disposition home or self-care (01) ==
LOC: JER 00:08
DX: T83.9XXA Unspecified complication of genitourinary prosthetic device, implant and graft, initial encounter (principal)
CPT/HCPCS: 99282-25

== ENCOUNTER 2022-10-29 07:17 | Emergency (ER) | payer OTHER ==
[2022-10-29 07:32] VITALS: BP 130/70; PULSE 63; RESP 18; TEMP 98; BMI 26.6
[2022-10-29] MEDS ORDERED: SODIUM PHOSPHATE/NA BIPHOS 133 ML ENEMA PR ONE (08:55)
[2022-10-29] MEDS ORDERED: MAGNESIUM CITRATE 300 ML BOTTLE PO ONE (09:52)
== END 2022-10-29 12:16 | disposition home or self-care (01) ==
LOC: JER 07:17
DX: K59.00 Constipation, unspecified (principal)
CPT/HCPCS: 99283-25

== ENCOUNTER 2023-11-28 17:11 | Emergency (ER) | payer OTHER ==
[2023-11-28 17:24] VITALS: BP 169/85; PULSE 78; RESP 18; TEMP 99; BMI 28.1
[2023-11-28 18:59] LABS: EPI CELLS 0 /uL (0-25.1); HYALINE CASTS 0 /uL (0-3.1); URINE APPEARANCE CLOUDY; URINE BACTERIA 59 /uL (0-1359); URINE BILIRUBIN NEGATIVE (NEGATIVE); URINE COLOR ORANGE; URINE GLUCOSE (UA) NEGATIVE (NEGATIVE); URINE KETONE NEGATIVE (NEGATIVE); URINE LEUK ESTERASE 3+ (NEGATIVE); URINE NITRITE NEGATIVE (NEGATIVE); URINE PROTEIN 1+ (NEGATIVE); URINE RBC 8729 /uL (0-23.9); URINE UROBILINOGEN 0.2 mg/dL (0.2-1.0); URINE WBC 698 /uL (0-25.8)
[2023-11-28] MEDS: CEFPODOXIME PROXETIL 100 MG TABLET PO ONE (19:27)
== END 2023-11-28 19:31 | disposition home or self-care (01) ==
LOC: JER 17:11
DX: R33.9 Retention of urine, unspecified (principal); N39.0 Urinary tract infection, site not specified; R10.30 Lower abdominal pain, unspecified; R35.0 Frequency of micturition
CPT/HCPCS: 81003; 87086; 87186; 99283-25